=== PATIENT | male | born 1965 | race Native Hawaiian/Other Pacific Islander ===

== ENCOUNTER 2018-08-07 12:08 | Emergency (ER) | payer OTHER ==
--- NOTE | 2018-08-07 14:09 | Emergency Department Report ---
HPI - General Chief Complaint: Syncope Time Seen by Provider: 08/07/18 13:36 - HPI HPI: 52-year-old male presents to the emergency department after having an episode where he passed out about 1-2 hours prior to presentation. He was working on a vehicle and went from sitting and/or bending down to standing up when he suddenly got very dizzy and then passed out. Same thing happened to him the prior day except for he did not pass out at that time and was able to catch himself from falling. He denies hitting his head or any loss of consciousness. Currently he feels at his baseline without any current physical complaints. He denies any current headache, vision change, slurred speech, chest pain, shortness of breath, fever. He has a past medical history of borderline diabetes, borderline hypertension, BPH and IBS. He does not currently have a primary care physician. No recent travel or sick contacts at home. ED Past Medical Hx - Past Medical History Previous Medical History?: Yes Hx Hypertension: Yes (taken off of meds) Hx Diabetes: Yes (pre-diabetes) Additional medical history: BPH, IBS - Surgical History Past Surgical History?: No - Social History Smoking Status: Never Smoker Substance Use Type: None ED Review of Systems ROS: Stated complaint: SYNCOPE Other details as noted in HPI Comment: All other systems reviewed and negative Constitutional: denies: chills, fever Eyes: denies: eye pain, eye discharge, vision change ENT: denies: ear pain, throat pain Respiratory: denies: cough, shortness of breath, wheezing Cardiovascular: syncope. denies: chest pain Gastrointestinal: denies: abdominal pain, nausea, diarrhea Genitourinary: denies: urgency, dysuria Musculoskeletal: denies: back pain, joint swelling, arthralgia Skin: denies: rash, lesions Neurological: denies: headache, numbness Physical Exam - Physical Exam Vital Signs: Vital Signs 08/07/18 12:29 Temperature 98.6 F Pulse Rate 73 Respiratory 16 Rate Blood Pressure 118/71 O2 Sat by Pulse 97 Oximetry Physical Exam: GENERAL: The patient is well-developed well-nourished. HENT: Normocephalic. Atraumatic. Patient has moist mucous membranes. EYES: Extraocular motions are intact. Pupils equal reactive to light bilaterally. No nystagmus. NECK: Supple. Trachea is midline. CHEST/LUNGS: Clear to auscultation. There is no respiratory distress noted. HEART/CARDIOVASCULAR: Regular. There is no tachycardia. There is no murmur. ABDOMEN: Abdomen is soft, nontender. Patient has normal bowel sounds. There is no abdominal distention. SKIN: Skin is warm and dry. NEURO: The patient is awake, alert, and oriented. The patient is cooperative. The patient has no focal neurologic deficits. The patient has normal speech and gait. No pronator drift. No dysmetria. No facial asymmetry. Cranial nerves II through XII grossly intact. MUSCULOSKELETAL: There is no tenderness or deformity. There is no limitation range of motion. There is no evidence of acute injury. ED Course Vital Signs 08/07/18 12:29 Temperature 98.6 F Pulse Rate 73 Respiratory 16 Rate Blood Pressure 118/71 O2 Sat by Pulse 97 Oximetry ED Medical Decision Making - Lab Data Result diagrams: 08/07/18 13:58 08/07/18 13:58 - EKG Data -: EKG Interpreted by [facility] EKG shows normal: sinus rhythm, axis, intervals (prolonged WA interval), QRS complexes, ST-T waves Rate: normal - EKG Data When compared to previous EKG there are: previous EKG unavailable Interpretation: other (sinus rhythm, normal axis, prolonged WA interval. No ST elevation IL) - Medical Decision Making Patient presents after having a syncopal episode just prior to presentation. He also had an episode where he almost passed out the prior day but he was able to catch himself. There was no head trauma. The loss of consciousness was very brief today. And both incidents, the patient was sitting down or squatting and got up very quickly and got very dizzy. Since being in the emergency department the patient is asymptomatic and has no current complaints. On examination there is no focal, motor or sensory deficits and his cranial nerves have been intact. EKG shows a prolonged WA interval but no significant bradycardia. The lowest heart rate of the 2 EKGs done was 56 bpm. Otherwise there is no signs of any ST elevation IL or significant dysrhythmia. Labs have been unremarkable including negative troponin 1, normal thyroid function, normal electrolyte, normal renal function and no signs of hyperglycemia. The patient was reevaluated multiple times for multiple hours and has remained stable. Vital signs stable throughout his ED course as well. The patient was seen ambulatory in the emergency department and appeared stable while doing so. Since the patient had one episode of passing out without any further dizziness , disequilibrium or any complaints of headache, or any neurological deficits, I do not feel that CT imaging of the head was necessary at this time. He has made an appointment to follow-up with the primary care physician on Friday and will return to the ER with any further episodes of passing out, worsening of his symptoms, or any acute distress. He is also been given a referral for cardiology follow-up regarding the questionable first-degree AV block. - Differential Diagnosis vasovagal, orthostatic hypotension, dysrhythmia, IL, TIA Critical Care Time: No Critical care attestation.: If time is entered above; I have spent that time in minutes in the direct care of this critically ill patient, excluding procedure time. ED Disposition Clinical Impression: Prolonged P-R interval Syncope Qualifiers: Syncope type: unspecified Qualified Code(s): R55 - Syncope and collapse Disposition: TO HOME OR SELFCARE Is pt being admited?: No Condition: Stable Instructions: Syncope (ED) Additional Instructions: Please follow-up with your primary care physician on Friday as you scheduled. Return to the emergency department immediately with any further episodes of passing out, sustained dizziness, feeling off balance or with any acute distress. I have given you a referral for a local pigs feet finisher, Dr. Jhaveri, to follow up regarding your episodes of passing out and the EKG that showed a prolonged WA interval/first degree AV block. Referrals: DINO AKHTAR [Primary Care Provider] - 08/10/18 CHERIE CLARK MD [Staff Physician] - 3-5 Days Time of Disposition: 16:19
[2018-08-07 14:14] LABS: Basophils % (Auto) 0.6 % (0.0-1.8); Eosinophils # (Auto) 0.1 K/mm3 (0.0-0.4); Eosinophils % (Auto) 2.3 % (0.0-4.3); Hematocrit 39.7 % (35.5-45.6); Hemoglobin 13.5 gm/dl (11.8-15.2); Lymphocytes # (Auto) 1.4 K/mm3 (1.2-5.4); Lymphocytes % (Auto) 23.6 % (13.4-35.0); Mean Corpuscular HGB Conc 34 % (32-34); Mean Corpuscular Hemoglobin 32 pg (28-32); Mean Corpuscular Volume 96 fl (84-94); Monocytes # (Auto) 0.6 K/mm3 (0.0-0.8); Monocytes % (Auto) 9.4 % (0.0-7.3); Platelet Count 269 K/mm3 (140-440); Red Blood Count 4.15 M/mm3 (3.65-5.03); Red Cell Distribution Width 12.5 % (13.2-15.2)
[2018-08-07 14:25] LABS: Bilirubin,Urine NEG (Negative); Blood,Urine NEG (Negative); Color,Urine Colorless (Yellow); Protein,Urine <15 mg/dL mg/dL (Negative); Urobilinogen,Urine < 2.0 mg/dL (<2.0); WBC,Urine < 1.0 /HPF (0.0-6.0)
[2018-08-07 14:36] LABS: Alanine Aminotransferase 19 units/L (7-56); Albumin 4.5 g/dL (3.9-5); BUN/Creatinine Ratio 11; Blood Urea Nitrogen 11 mg/dL (9-20); Calcium 8.8 mg/dL (8.4-10.2); Hemolysis Index 6
[2018-08-07 16:26] VITALS: BP 122/71
== END 2018-08-07 16:25 | disposition home or self-care (01) ==
LOC: ED 12:08
DX: I44.0 Atrioventricular block, first degree (principal); R55 Syncope and collapse; I10 Essential (primary) hypertension; Z87.438 Personal history of other diseases of male genital organs; Z87.19 Personal history of other diseases of the digestive system
CPT/HCPCS: 36415; 80053; 81001; 82962; 84443; 84484; 85025; 93005; 93010